=== PATIENT | male | born 1935 | race Caucasian/White ===

== ENCOUNTER 2019-02-22 14:18 | Inpatient (IN) | payer MEDICARE, MEDICAID ==
[~2019-02-22] VITALS: Ht 165.1 cm; Wt 82.1 kg
[2019-02-22] MEDS ORDERED: SODIUM CHLORIDE 0.9% 1000ML BAG (SEPSIS BOLUS) IV ONE (15:00)
[2019-02-22 15:27] LABS: HEMATOCRIT. 37.3 % (42.0-52.0); HEMOGLOBIN. 12.4 g/dL (14.0-18.0); MEAN CORPUSCULAR HEMOGLOBIN 29.5 pg (28.0-32.0); MEAN CORPUSCULAR VOLUME 88.9 fL (80.0-94.0); MEAN PLATELET VOLUME 9.1 fl (7.4-10.4); PLATELET 159 x1000/uL (130-400); RED CELL DISTRIBUTION WIDTH 14.8 % (11.6-14.6)
[2019-02-22 15:30] LABS: CHLORIDE 101 mEq/L (98-107)
[2019-02-22 15:33] LABS: INR 1.1; PARTIAL THROMBOPLASTIN TIME 28.4 sec (23.4-31.0); PROTHROMBIN TIME 11.3 sec (9.6-11.0)
[2019-02-22 16:38] LABS: PLATELET ESTIMATE NORMAL
[2019-02-22] MEDS ORDERED: LEVOFLOXACIN 750MG PREMIX 150 ML IV ONE (17:00)
[2019-02-22] MEDS ORDERED: ACETAMINOPHEN 325MG TABLET PO ONE (18:00)
[2019-02-22] MEDS ORDERED: METRONIDAZOLE 500 MG PREMIX 100 ML IV ONE (18:00)
[2019-02-22] MEDS ORDERED: ACETAMINOPHEN 500MG TABLET PO SCH (18:06)
[2019-02-22 18:22] LABS: CLARITY URINE CLOUDY (CLEAR); COLOR URINE YELLOW (YELLOW); KETONES URINE NEGATIVE (NEGATIVE); LEUKOCYTE ESTERASE URINE NEGATIVE (NEGATIVE); NITRITE URINE NEGATIVE (NEGATIVE); OCCULT BLOOD URINE 2+ (NEGATIVE); PROTEIN URINE 1+ (NEGATIVE); SPECIFIC GRAVITY URINE 1.022 (1.005-1.030); UROBILINOGEN URINE 0.2 E.U./dL (0.2-1.0)
[2019-02-22] MEDS ORDERED: DEXTROSE 50% WATER 50ML SYRINGE IV PRN (18:30)
[2019-02-22] MEDS ORDERED: ACETAMINOPHEN 325MG TABLET PO PRN (18:30)
[2019-02-22] MEDS ORDERED: ONDANSETRON HCL 4MG/2ML INJ IV PRN (18:30)
[2019-02-22] MEDS ORDERED: PIPERACILLIN/TAZ 3.375G PREMIX 50 ML IV NR (20:00)
[2019-02-22 21:00] VITALS: BP 85/45
[2019-02-22] MEDS ORDERED: POTASSIUM CHLORIDE 20MEQ TABLET SR PO NR (22:30)
[2019-02-22] MEDS: BLOOD SUGAR DIAGNOSTIC STRIP TEST SCH (22:30)
[2019-02-22] MEDS ORDERED: ASPI-1158 PO (23:14)
[2019-02-22] MEDS ORDERED: GLYB5TAB7 PO (23:14)
[2019-02-22] MEDS ORDERED: TAMS-11 PO (23:14)
[2019-02-22] MEDS ORDERED: GLIP5TAB12 PO (23:14)
[2019-02-22] MEDS ORDERED: NITR100C PO (23:14)
[2019-02-22 23:29] VITALS: BP 114/59
[2019-02-22] MEDS: SODIUM CHLORIDE 0.9% 1,000 ML IV SCH (23:49)
[2019-02-23] VITALS: BP 113/57
[2019-02-23] MEDS: PIPERACILLIN/TAZOBACTAM 3.375 G in DEXT 5% WATER 100 ML IV SCH ×4 (01:44→21:23)
[2019-02-23 04:00] VITALS: BP 84/49
[2019-02-23] MEDS: BLOOD SUGAR DIAGNOSTIC STRIP TEST SCH ×4 (06:03→21:06)
[2019-02-23 06:12] LABS: BASOPHILS % 0.1 % (0.0-2.0); EOSINOPHILS % 0.2 % (0.0-5.0); HEMATOCRIT. 32.2 % (42.0-52.0); HEMOGLOBIN. 10.8 g/dL (14.0-18.0); LYMPHOCYTES % 9.1 % (20.0-50.0); MEAN CORPUSCULAR HEMOGLOBIN 29.5 pg (28.0-32.0); MEAN CORPUSCULAR VOLUME 88.3 fL (80.0-94.0); MEAN PLATELET VOLUME 9.6 fl (7.4-10.4); MONOCYTES % 10.7 % (2.0-8.0); NEUTROPHILS % 79.9 % (40.0-76.0); PLATELET 136 x1000/uL (130-400); RED BLOOD CELL COUNT 3.65 mill/uL (4.7-6.1); RED CELL DISTRIBUTION WIDTH 14.8 % (11.6-14.6)
[2019-02-23 06:49] LABS: CHLORIDE 110 mEq/L (98-107)
[2019-02-23] MEDS: INSULIN LISPRO 100 UNITS/ML SUBCUT SCH ×5 (08:10→21:00)
[2019-02-23 09:00] VITALS: BP 96/50
[2019-02-23] MEDS ORDERED: POTASSIUM CHLORIDE 20MEQ TABLET SR PO SCH (10:30)
[2019-02-23] MEDS: PANTOPRAZOLE SODIUM 40 MG/VIAL IV SCH ×2 (10:34→21:22)
[2019-02-23 12:00] VITALS: BP 114/59
[2019-02-23 16:00] VITALS: BP 117/56
[2019-02-23 20:00] VITALS: BP 120/56
[2019-02-23] MEDS: SODIUM CHLORIDE 0.9% 1,000 ML IV SCH (23:04)
[2019-02-24] VITALS: BP 111/65
[2019-02-24] MEDS: SODIUM CHLORIDE 0.9% 1,000 ML IV SCH ×3 (01:40→13:46)
[2019-02-24 04:00] VITALS: BP 112/56
[2019-02-24] MEDS: PIPERACILLIN/TAZOBACTAM 3.375 G in DEXT 5% WATER 100 ML IV SCH ×2 (05:04→09:41)
[2019-02-24] MEDS: BLOOD SUGAR DIAGNOSTIC STRIP TEST SCH ×4 (06:27→20:37)
[2019-02-24] MEDS: INSULIN LISPRO 100 UNITS/ML SUBCUT SCH ×4 (07:10→21:26)
[2019-02-24 07:19] LABS: FOLIC ACID (FOLATE) SERUM 11.3 ng/mL (>5.38)
[2019-02-24 07:29] LABS: BASOPHILS % 0.2 % (0.0-2.0); EOSINOPHILS % 1.4 % (0.0-5.0); HEMATOCRIT. 31.6 % (42.0-52.0); HEMOGLOBIN. 10.7 g/dL (14.0-18.0); LYMPHOCYTES % 15.8 % (20.0-50.0); MEAN CORPUSCULAR HEMOGLOBIN 29.8 pg (28.0-32.0); MEAN CORPUSCULAR VOLUME 88.4 fL (80.0-94.0); MEAN PLATELET VOLUME 9.3 fl (7.4-10.4); MONOCYTES % 11.3 % (2.0-8.0); NEUTROPHILS % 71.3 % (40.0-76.0); PLATELET 119 x1000/uL (130-400); RED BLOOD CELL COUNT 3.57 mill/uL (4.7-6.1); RED CELL DISTRIBUTION WIDTH 14.7 % (11.6-14.6)
[2019-02-24 08:00] VITALS: BP 115/61
[2019-02-24 08:10] LABS: CHLORIDE 110 mEq/L (98-107)
[2019-02-24 08:17] LABS: TOTAL IRON BINDING CAPACITY 185 ug/dL (250-450)
[2019-02-24] MEDS: PANTOPRAZOLE SODIUM 40 MG/VIAL IV SCH ×2 (09:17→21:20)
[2019-02-24 12:00] VITALS: BP 100/43
[2019-02-24 15:37] VITALS: BP 113/50
[2019-02-24 20:00] VITALS: BP 121/58
[2019-02-24] MEDS: GUAIFENESIN 200MG/10ML SUGAR FREE UDC PO PRN (22:58)
[2019-02-25] VITALS (7 sets, daily range): BP systolic 118–133; BP diastolic 58–69
[2019-02-25] MEDS: SODIUM CHLORIDE 0.9% 1,000 ML IV SCH (04:58)
[2019-02-25] MEDS: GUAIFENESIN 200MG/10ML SUGAR FREE UDC PO PRN ×2 (04:59→10:46)
[2019-02-25] MEDS: BLOOD SUGAR DIAGNOSTIC STRIP TEST SCH ×3 (06:27→17:40)
[2019-02-25] MEDS: INSULIN LISPRO 100 UNITS/ML SUBCUT SCH ×3 (07:32→18:10)
[2019-02-25] MEDS: PANTOPRAZOLE SODIUM 40 MG/VIAL IV SCH (10:47)
[2019-02-25] MEDS ORDERED: DEXTL PO (18:00)
== END 2019-02-25 21:45 | disposition home or self-care (01) | DRG 720 ==
LOC: ER 14:18 → EDBEDREQ 16:55 → 7WST 18:13 → EDBEDREQ 18:17 → EDBEDREQTM 18:17 → ENRESERV 20:19
PROVIDERS: ADMIT Internal Medicine; ATTEND Internal Medicine
DX: A41.9 Sepsis, unspecified organism (principal); J96.01 Acute respiratory failure with hypoxia; J18.9 Pneumonia, unspecified organism; E87.2 Acidosis; E87.1 Hypo-osmolality and hyponatremia; D64.9 Anemia, unspecified; E11.9 Type 2 diabetes mellitus without complications; N28.1 Cyst of kidney, acquired; E66.9 Obesity, unspecified; K64.9 Unspecified hemorrhoids; E87.6 Hypokalemia; N39.0 Urinary tract infection, site not specified; K52.9 Noninfective gastroenteritis and colitis, unspecified; Z79.82 Long term (current) use of aspirin; Z68.30 Body mass index [BMI] 30.0-30.9, adult; Z71.3 Dietary counseling and surveillance
CPT/HCPCS: 36415; 71045; 74176; 80048; 81003; 82270; 82607; 82728; 82746; 82962; 83036; 83540; 83550; 83605; 84145; 84484; 86850; 86900; 87015; 87045; 87427; 87449; 87804; 93005; 93970; 96361; 96365; 96375; 99285; A6261; C9113; J1815; J1956; J2543; J3490; J7030; J7060